=== PATIENT | female | born 1955 | race Caucasian/White ===

== ENCOUNTER → 2016-11-12 08:33 | Outpatient (CLI) | payer OTHER ==
[~2016-11-12 08:33] MED LIST: ADIPEX-P37.5 MG PO; ALEVE220 MG PO; ASCORBIC ACID500 MG PO; CHROMIUM PICO200 MC1 PO; CINNAMON500 MG PO; ECOTRIN325 MG PO; ESTROPIPATE1.5 MG PO; GALZIN25 MG PO; HYDROCODONE-APA1 TAB PO; KLONOPIN1 MG PO; MULTIPLE VITAMI1 TA1 PO; POTASSIUM99 M1 PO; PROVERA2.5 MG PO; ROBAXIN-750750 MG PO; VITAMIN B COMPL1 TAB PO
[2016-11-19 09:15] VITALS: BMI 29.7
== END | disposition home or self-care (01) ==
LOC: D.MRI 08:33
DX: M25.511 Pain in right shoulder (principal)

== ENCOUNTER 2016-11-19 05:38 | Day surgery (SDC) | payer OTHER ==
[2016-11-18 09:18] LABS: HEMATOCRIT 38.8 % (36.0-48.0); HEMOGLOBIN 13.4 g/dL (12-16); MCHC 34.5 g/dL (31.0-37.0); MCV 98.5 fL (80.0-100.0); RBC 3.94 10x6/uL (4.00-5.40); RDW 13.7 % (11.5-14.5); WBC 7.4 10x3/uL (4.8-10.8)
[~2016-11-19] VITALS: Ht 144.8 cm; Wt 62.1 kg
[~2016-11-19 05:38] MED LIST changes: -HYDROCODONE-APA1 TAB PO; -ROBAXIN-750750 MG PO
[2016-11-19 09:15] VITALS: BP 110/75; Ht 144.8 cm; Wt 62.1 kg
[2016-11-19] MEDS ORDERED: HYDROCODONE-APA1 TAB PO (13:12)
[2016-11-19] MEDS ORDERED: ROBAXIN-750750 MG PO (13:13)
--- NOTE | 2016-11-19 14:06 | NUR ---
IV DC WITH CATHER TIP INTACT
--- NOTE | 2016-11-28 08:25 | OP ---
PATIENT NAME: JENNIFER HELM MEDICAL RECORD: [id number] :57 LOCATION:D.[facility] ADMISSION DATE: SURGEON: NAMITA DARNELL MD DATE OF OPERATION: 11/19/2016 PREOPERATIVE DIAGNOSES: Right shoulder impingement, acromioclavicular joint degenerative joint disease and rotator cuff tear. POSTOPERATIVE DIAGNOSES: Right shoulder impingement, acromioclavicular joint disease and rotator cuff tear. PROCEDURE PERFORMED: Right shoulder arthroscopic decompression, subacromial decompression, distal clavicle excision, and open rotator cuff repair. SURGEON: Oc Darnell MD ANESTHESIA: General with interscalene block for postop pain. CONDITION: The patient tolerated the procedure well, was transferred to the recovery room in stable condition at termination of procedure. INDICATIONS: This is a pleasant 61-year-old female noted to have weakness, pain. MRI suggestive of a full thickness tear. We discussed the options and elected to go ahead and proceed with the operative repair. We discussed risks, benefits, and alternatives including retear. She understood and wished to proceed. OPERATIVE REPORT: The patient was taken to the operating room, placed in a supine position. General anesthesia was obtained. Interscalene block was placed in the preop holding area. In the operating room, the right shoulder was confirmed to be the correct shoulder. She was then prepped and draped in normal fashion. Procedure was begun by marking out portal sites and injecting them with 0.25% Marcaine with epinephrine. Posterior portal was established. I then established an anterior portal under direct visualization. Glenohumeral joint overall looked good. There were some minor degenerative changes. There was some fraying of the labrum. There was some fraying of the biceps as well, but overall was intact. Coming up to the top, there was a fairly significant hole within the supraspinatus area anteriorly. I did take the scope out at this juncture, put to the subacromial space and using the shaver and cautery, I did remove the subacromial bursa. I then took off the undersurface of the acromion and the distal clavicle where there was significant under spurring. I then proceeded to make a lateral incision, opened this up, cleaned up the edge of the cuff, roughened up the bone on the footprint area, then placed 3 punch sutures into the cuff and two 4.5 [place] suture anchors into the footprint area to bring the cuff back down. This brought it down very well. I then inspected. Once it was noted that it was very in good position, I then copiously irrigated, then closed with 2-0 Vicryl, then 3-0 Prolene. She was placed in a slingshot brace, awakened and transferred to recovery room in stable condition, having tolerated procedure well. TRANSINT:[id number] Voice Confirmation ID: [id number] DOCUMENT ID: [id number] OPERATIVE REPORT [id number] JENNIFER HELM, NAMITA COX MD at 0825 CC: [id number] DICTATION DATE: 11/19/16 1238 MECHANICAL APPLICATIONS ENGINEER: 11/19/[address] [facility] 11/19/16 [address] [place] [address]
== END 2016-11-19 14:15 | disposition home or self-care (01) ==
LOC: D.OPS 05:38 → D.PAN 11:00 → D.OPS 11:15
PROVIDERS: Anesthesiology
DX: M75.41 Impingement syndrome of right shoulder (principal); M19.011 Primary osteoarthritis, right shoulder; M75.101 Unspecified rotator cuff tear or rupture of right shoulder, not specified as traumatic

== ENCOUNTER → 2018-02-13 06:57 | Outpatient (CLI) | payer OTHER ==
[2016-11-19 09:15] VITALS: BMI 29.7
[~2018-02-13 06:57] MED LIST changes: +HYDROCODONE-APA1 TAB PO; +ROBAXIN-750750 MG PO
== END | disposition home or self-care (01) ==
LOC: D.MRI 06:57
DX: M54.16 Radiculopathy, lumbar region (principal)

== ENCOUNTER → 2018-07-22 12:41 | Outpatient (CLI) | payer OTHER ==
[2016-11-19 09:15] VITALS: BMI 29.7
== END | disposition home or self-care (01) ==
LOC: D.LABREF 12:41
DX: M16.11 Unilateral primary osteoarthritis, right hip (principal); Z11.8 Encounter for screening for other infectious and parasitic diseases

== ENCOUNTER 2018-08-17 05:13 | Inpatient (IN) | payer OTHER ==
[2018-08-12 11:32] LABS: BASOPHILS 0.5 % (0-2); EOSINOPHILS 2.9 % (0-7); HEMATOCRIT 40.7 % (36.0-48.0); HEMOGLOBIN 13.6 g/dL (12-16); IMMATURE GRANULOCYTES 0.3 % (0-5); LYMPHOCYTES 26.3 % (15-50); MCH 32.2 pg (26.0-34.0); MCHC 33.4 g/dL (31.0-37.0); MCV 96.4 fL (80.0-100.0); MEAN PLATELET VOLUME 9.8 fL (7.4-10.4); RBC 4.22 10x6/uL (4.00-5.40); RDW 13.7 % (11.5-14.5); WBC 10.7 10x3/uL (4.8-10.8)
[2018-08-12 11:40] LABS: PLATELET COUNT 354 10x3/uL (130-400)
[2018-08-12 11:45] LABS: APPEARANCE CLEAR (CLEAR); BILIRUBIN NEGATIVE (NEGATIVE); COLOR YELLOW (YELLOW); GLUCOSE NEGATIVE (NEGATIVE); KETONE NEGATIVE (NEGATIVE); NITRITE NEGATIVE (NEGATIVE); PROTEIN NEGATIVE (NEGATIVE); SPECIFIC GRAVITY 1.005 (1.005-1.020); UROBILINOGEN NORMAL (NORMAL)
[2018-08-12 11:45] LABS: INR 0.92 (0.85-1.17)
[2018-08-12 11:46] LABS: ANION GAP 14.1 mmol/L (8-16); CALCIUM 8.8 mg/dL (8.5-10.1); POTASSIUM - SERUM 3.1 mmol/L (3.5-5.1)
[2018-08-12 11:46] LABS: APTT 23.8 SECONDS (22.8-39.4)
[2018-08-17] VITALS (13 sets, daily range): BP systolic 98–166; BP diastolic 69–95; Ht 144.8 cm; Wt 79.5 kg
[~2018-08-17] VITALS: Ht 144.8 cm; Wt 79.5 kg
--- NOTE | ~2018-08-17 | OP ---
PATIENT NAME: JENNIFER HELM MEDICAL RECORD: [id number] :57 LOCATION:D[facility] ADMISSION DATE:08/17/18 SURGEON: SONYA SAWYER MD DATE OF OPERATION: 08/17/2018 PREOPERATIVE DIAGNOSIS: Severe degenerative arthritis of the right hip. POSTOPERATIVE DIAGNOSIS: Severe degenerative arthritis of the right hip. PROCEDURE: Right total hip arthroplasty. SURGEON: Sonya Sawyer MD ANESTHESIA: General. INTRAOPERATIVE COMPLICATIONS: None. SUMMARY OF PATHOLOGIC FINDINGS: Extensive osteoarthritis of her right hip consistent with the preoperative radiographs. IMPLANTS USED: [place] Accolade II with a Tritanium cup size 48, alpha code C, 32-4 V40 femoral head, Trident X3 polyethylene insert, 32 alpha C code, Accolade II 132 degree neck angle stem size 3. OPERATIVE SUMMARY IN DETAIL: After obtaining the appropriate preoperative orthopedic surgery consent as well as anesthetic consultation, evaluation and clearance, the patient was brought to the operating room and placed on the operating table in supine position. After general laryngeal mask airway was administered, the patient was placed in left lateral decubitus position. All pressure points well were padded to include down leg peroneal pad as well as axillary roll. The patient was held firmly to the operating table using the vacuum pack suction system. Right lower extremity and hip were then prepped and draped in routine sterile fashion. A curvilinear incision made over the greater trochanter and take down to the IT band, was split in line with the fibers of the IT band to reveal the gluteus medius minimus attachment. These were reflected anteriorly. Dissection was then carried down to the hip capsule. The hip capsule was split in a T-type fashion and saved for later reapproximation. Hip was dislocated. Femoral neck cut was made using the femoral neck cutting guide for the Accolade II system. At this point, the anterior and posterior retractors were placed for good visualization of the acetabulum. Circumferential labrectomy was followed by serial and sequential reaming to a size 47 for a size 48 Trident 2 cup. The Trident 2 cup was put into place with excellent fit and fill. Polyethylene was then put into place. Serial and sequential reaming were done to the size 3 Accolade II stem, which was tamped into place with good fit and fill. Trials were undertaken. It was felt that -4 was the most appropriate. The -4 was tamped on the Morris taper. The hip was reduced, taken through range of motion and found to be stable in all planes. Intraoperative radiographs were taken at this point showed good position and placement of all components. Hip capsule was reapproximated with #2 Ethibond. This was then followed by #5 Ethibond reapproximation of the gluteus medius and minimus back to the greater trochanter in a transosseous fashion. IT band was closed with #2 Ethibond followed by #1 Vicryl, 2-0 Vicryl and skin mee. Sterile dressings were applied. The patient was awakened and taken to the recovery room in stable condition. All final needle and sponge counts were correct. OPERATIVE REPORT [id number] ALICJAJENNIFER KI TRANSINT:[id number] Voice Confirmation ID: [id number] DOCUMENT ID: [id number] DIGNA REARDON, SONYA ADAMSON at 2017 CC: [id number] DICTATION DATE: 08/17/18 1213 ENGINEER SOILS: 08/17/18 1517 ADM IN [facility] [address] [place] [address]
--- NOTE | ~2018-08-17 | MORECARE ---
CASE MANAGEMENT DISCHARGE SUMMARY PATIENT: JENNIFER HELM UNIT: [id number] ADM DATE: 08/17/18 AGE: 63 : 57 SEX: F ROOM/BED: D.2211 AUTHOR: SWATI,DOC PHYSICIAN: REFERRING PHYSICIAN: SONYA SAWYER MD DATE OF SERVICE: 08/19/18 Discharge Plan Patient Name: JENNIFER HELM Facility: [facility]:[place] : 1955 Planned Disposition: Home with Home Health Anticipated Discharge Date: 08/19/18 Discharge Date: Expected LOS: 2 Initial Reviewer: [id number] Initial Review Date: 08/19/2018 Generated: 08/19/18 11:49 am Comments DCP- Discharge Planning Updated by [email or web address]: Yvette Joseph on 08/19/18 9:[address] Patient Name: JENNIFER HELM Admission Status: Elective Accout number: [id number] Admission Date: 08-17-2018 : 1955 Admission Diagnosis: Attending: SONYA SAWYER Current LOS: 2 Anticipated DC Date: 08-19-2018 Planned Disposition: Home with Home Health Primary Insurance: [employer] INS EXCHANGE Discharge Planning Comments: CM MET WITH PATIENT ABOUT DC PLANNING. PLANS TO DC HOME TODAY, WILL BRINE PLANT OPERATOR. [facility] IS BRINGING WALKER AND BEDSIDE COMMODE TO HOSPITAL ROOM BEFORE DISCHARGE. I SPOKE WITH MERYL AT [facility] AND THEY WILL SEE PATIENT FRIDAY. CM FAXED DOCUMENTS TO [facility]. Customer Logistics Manager: Yvette Joseph DCPIA - Discharge Planning Initial Assessment Updated by [email or web address]: Yvette Joseph on 08/19/18 10:19 am * Is the patient Alert and Oriented? Yes * How many steps to enter\exit or inside your home? * PCP BRASHEARS * Preadmission Environment Home with Family * ADLs Independent * Equipment Cane Grab Bars * List name and contact numbers for known caregivers / representatives who currently or will assist patient after discharge: LARRY ADAME, * Verbal permission to speak to the caregivers and representatives has been obtained from the patient. Yes * Community resources currently utilized None * Additional services required to return to the preadmission environment? Yes * Can the patient safely return to the preadmission environment? Yes * Has this patient been hospitalized within the prior 30 days at any hospital? No External Providers External Provider: [facility] Next Contact Date: Service Request Date: Service Type: Resolution: Reviewer: Comments: Coverage Notice Reviewer: [id number] - Yvette Joseph Notice Issued Date-Time: 08/19/2018 10:16 Notice Type: Patient Choice Letter Notice Delivered To: Patient Relationship to Patient: Self Raw Silk Grader Name: Delivery Method: HAND - Hand Delivered Caryn Days: Prior Verbal Notification: Recipient Understood Notice: Yes Recipient Signature: Yes Med Rec Note Co-signed by Attending: Coverage Notice Comment: ANGELIQUE Minor DP export: 08/19/18 9:24 Patient Name: JENNIFER HELM Page [phone] at 1049 All edits/amendments must be made on the electronic document DICTATION DATE: 08/19/181048 MICROARRAY SPECIALIST: RONAK 08/19/18 1049 RPT#: [id number] DC DATE: STATUS: ADM IN [facility] [address] [place] [address] END OF REPORT
--- NOTE | ~2018-08-17 | MORECARE ---
CASE MANAGEMENT DISCHARGE SUMMARY PATIENT: JENNIFER HELM UNIT: [id number] ADM DATE: 08/17/18 AGE: 63 : 57 SEX: F ROOM/BED: D.2211 AUTHOR: SWATI,DOC PHYSICIAN: REFERRING PHYSICIAN: SONYA SAWYER MD DATE OF SERVICE: 08/19/18 Discharge Plan Patient Name: JENNIFER HELM Facility: [facility]:[place] : 1955 Planned Disposition: Home with Home Health Anticipated Discharge Date: 08/19/18 Discharge Date: Expected LOS: 2 Initial Reviewer: [id number] Initial Review Date: 08/19/2018 Generated: 08/19/18 3:11 pm Comments DCP- Discharge Planning Updated by [email or web address]: Yvette Joseph on 08/19/18 1:[address] Patient Name: JENNIFER HELM Encounter No: [id number] : 1955 Primary Insurance: [employer] EXCHANGE Anticipated DC Date: 08-19-2018 Planned Disposition: Home with Home Health External Planned Provider: : DCP follow-up note[facility], THEY ARE THE ONLY SERVICE THAT HER INSURANCE IS IN NETWORK WITH. Case management will follow and assist as needed. Yvette Joseph DCP- Discharge Planning Updated by [email or web address]: Yvette Joseph on 08/19/18 9:[address] Patient Name: JENNIFER HELM Admission Status: Elective Accout number: [id number] Admission Date: 08-17-2018 : 1955 Admission Diagnosis: Attending: SONYA SAWYER Current LOS: 2 Anticipated DC Date: 08-19-2018 Planned Disposition: Home with Home Health Primary Insurance: [employer] INS EXCHANGE Discharge Planning Comments: CM MET WITH PATIENT ABOUT DC PLANNING. PLANS TO DC HOME TODAY, WILL FURS SALESPERSON. [facility] IS BRINGING WALKER AND BEDSIDE COMMODE TO HOSPITAL ROOM BEFORE DISCHARGE. I SPOKE WITH MERYL AT [facility] AND THEY WILL SEE PATIENT FRIDAY. CM FAXED DOCUMENTS TO [facility]. Soft Sugar Supervisor: Yvette Joseph DCPIA - Discharge Planning Initial Assessment Updated by [email or web address]: Yvette Joseph on 08/19/18 10:19 am * Is the patient Alert and Oriented? Yes * How many steps to enter\exit or inside your home? * PCP BRASHEARS * Preadmission Environment Home with Family * ADLs Independent * Equipment Cane Grab Bars * List name and contact numbers for known caregivers / representatives who currently or will assist patient after discharge: LARRY ADAME, * Verbal permission to speak to the caregivers and representatives has been obtained from the patient. Yes * Community resources currently utilized None * Additional services required to return to the preadmission environment? Yes * Can the patient safely return to the preadmission environment? Yes * Has this patient been hospitalized within the prior 30 days at any hospital? No External Providers External Provider: [facility] Contact Date: Service Request Date: Service Type: Resolution: Reviewer: Comments: Coverage Notice Reviewer: [id number] Filiberto Yvette Opal Notice Issued Date-Time: 08/19/2018 10:16 Notice Type: Patient Choice Letter Notice Delivered To: Patient Relationship to Patient: Self Ship Design Teacher Name: Delivery Method: HAND - Hand Delivered Caryn Days: Prior Verbal Notification: Recipient Understood Notice: Yes Recipient Signature: Yes Med Rec Note Co-signed by Attending: Coverage Notice Comment: ANGELIQUE Minor DP export: 08/19/18 11:13 Patient Name: JENNIFER HELM Page [phone] at 1411 All edits/amendments must be made on the electronic document DICTATION DATE: 08/19/181410 LIAISON OFFICER: RONAK 08/19/181410 RPT#: [id number] DC DATE: STATUS: ADM IN [facility] [address] [place] [address] END OF REPORT
--- NOTE | ~2018-08-17 | MORECARE ---
CASE MANAGEMENT DISCHARGE SUMMARY PATIENT: JENNIFER HELM UNIT: [id number] ADM DATE: 08/17/18 AGE: 63 : 57 SEX: F ROOM/BED: D.2211 AUTHOR: SWATI,DOC PHYSICIAN: REFERRING PHYSICIAN: SONYA SAWYER MD DATE OF SERVICE: 08/19/18 Discharge Plan Patient Name: JENNIFER HELM Facility: [facility]:[place] : 1955 Planned Disposition: Home with Home Health Anticipated Discharge Date: 08/19/18 Discharge Date: Expected LOS: 2 Initial Reviewer: [email or web address] Initial Review Date: 08/19/2018 Generated: 08/19/18 11:24 am Comments DCP- Discharge Planning Updated by [email or web address]: Yvette Joseph on 08/19/18 9:[address] Patient Name: JENNIFER HELM Admission Status: Elective Accout number: [id number] Admission Date: 08-17-2018 : 1955 Admission Diagnosis: Attending: SONYA SAWYER Current LOS: 2 Anticipated DC Date: 08-19-2018 Planned Disposition: Home with Home Health Primary Insurance: [employer] INS EXCHANGE Discharge Planning Comments: CM MET WITH PATIENT ABOUT DC PLANNING. PLANS TO DC HOME TODAY, WILL EMBEDDED LINUX DEVELOPER. [facility] IS BRINGING WALKER AND BEDSIDE COMMODE TO HOSPITAL ROOM BEFORE DISCHARGE. I SPOKE WITH MERYL AT [facility] AND THEY WILL SEE PATIENT FRIDAY. CM FAXED DOCUMENTS TO [facility]. Warehouse Freight Handler: Yvette Joseph DCPIA - Discharge Planning Initial Assessment Updated by [email or web address]: Yvette Joseph on 08/19/18 10:19 am * Is the patient Alert and Oriented? Yes * How many steps to enter\exit or inside your home? * PCP BRASHEARS * Preadmission Environment Home with Family * ADLs Independent * Equipment Cane Grab Bars * List name and contact numbers for known caregivers / representatives who currently or will assist patient after discharge: LARRY ADAME, * Verbal permission to speak to the caregivers and representatives has been obtained from the patient. Yes * Community resources currently utilized None * Additional services required to return to the preadmission environment? Yes * Can the patient safely return to the preadmission environment? Yes * Has this patient been hospitalized within the prior 30 days at any hospital? No External Providers External Provider: [facility] Next Contact Date: Service Request Date: Service Type: Resolution: Reviewer: Comments: Coverage Notice Reviewer: [email or web address] Filiberto Yvetteanjelica Joseph Notice Issued Date-Time: 08/19/2018 10:16 Notice Type: Patient Choice Letter Notice Delivered To: Patient Relationship to Patient: Self Hybrid Corn Breeder Name: Delivery Method: HAND - Hand Delivered Caryn Days: Prior Verbal Notification: Recipient Understood Notice: Yes Recipient Signature: Yes Med Rec Note Co-signed by Attending: Coverage Notice Comment: ANGELIQUE Patient Name: JENNIFER HELM Page [id number] at 1025 All edits/amendments must be made on the electronic document DICTATION DATE: 08/19/18 1024 CQ DEVELOPER: RONAK 08/19/18 1024 RPT#: [id number] DC DATE: STATUS: ADM IN [facility] [address] [place] [address] END OF REPORT
--- NOTE | ~2018-08-17 | MORECARE ---
CASE MANAGEMENT DISCHARGE SUMMARY PATIENT: JENNIFER HELM UNIT: [id number] ADM DATE: 08/17/18 AGE: 63 : 57 SEX: F ROOM/BED: D.2211 AUTHOR: SWATI,DOC PHYSICIAN: REFERRING PHYSICIAN: SONYA SAWYER MD DATE OF SERVICE: 08/24/18 Discharge Plan Patient Name: JENNIFER HELM Facility: [facility]:[place] : 1955 Planned Disposition: Home with Home Health Anticipated Discharge Date: 08/19/18 Discharge Date: 08/19/2018 Expected LOS: 2 Initial Reviewer: [id number] Initial Review Date: 08/19/2018 Generated: 08/24/18 9:09 am Comments DCP- Discharge Planning Updated by [email or web address]: Yvette Joseph on 08/19/18 1:[address] Patient Name: JENNIFER HELM Encounter No: [id number] : 1955 Primary Insurance: [employer] EXCHANGE Anticipated DC Date: 08-19-2018 Planned Disposition: Home with Home Health External Planned Provider: : DCP follow-up note: [facility] WILL SEE PATIENT FRIDAY, THEY ARE THE ONLY SERVICE THAT HER INSURANCE IS IN NETWORK WITH. Case management will follow and assist as needed. Yvette Joseph DCP- Discharge Planning Updated by [email or web address]: Yvette Joseph on 08/19/18 9:[address] Patient Name: JENNIFER HELM Admission Status: Elective Accout number: [id number] Admission Date: 08-17-2018 : 1955 Admission Diagnosis: Attending: SONYA SAWYER Current LOS: 2 Anticipated DC Date: 08-19-2018 Planned Disposition: Home with Home Health Primary Insurance: [employer] INS EXCHANGE Discharge Planning Comments: CM MET WITH PATIENT ABOUT DC PLANNING. PLANS TO DC HOME TODAY, WILL INTERNATIONAL AFFAIRS VICE PRESIDENT. [facility] IS BRINGING WALKER AND BEDSIDE COMMODE TO HOSPITAL ROOM BEFORE DISCHARGE. I SPOKE WITH MERYL AT [facility] AND THEY WILL SEE PATIENT FRIDAY. CM FAXED DOCUMENTS TO [facility]. Salad Maker: Yvette Joseph DCPIA - Discharge Planning Initial Assessment Updated by [id number]: Yvette Joseph on 08/19/18 10:19 am * Is the patient Alert and Oriented? Yes * How many steps to enter\exit or inside your home? * PCP COURTNEY * Preadmission Environment Home with Family * ADLs Independent * Equipment Cane Grab Bars * List name and contact numbers for known caregivers / representatives who currently or will assist patient after discharge: LARRY ADAME, * Verbal permission to speak to the caregivers and representatives has been obtained from the patient. Yes * Community resources currently utilized None * Additional services required to return to the preadmission environment? Yes * Can the patient safely return to the preadmission environment? Yes * Has this patient been hospitalized within the prior 30 days at any hospital? No Coverage Notice Reviewer: [id number] - Yvette Joseph Notice Issued Date-Time: 08/19/2018 10:16 Notice Type: Patient Choice Letter Notice Delivered To: Patient Relationship to Patient: Self Analysis Manager Name: Delivery Method: HAND - Hand Delivered Caryn Days: Prior Verbal Notification: Recipient Understood Notice: Yes Recipient Signature: Yes Med Rec Note Co-signed by Attending: Coverage Notice Comment: ANGELIQUE Minor DP export: 08/19/18 1:11 Patient Name: JENNIFER HELM Page [phone] at 0809 All edits/amendments must be made on the electronic document DICTATION DATE: 08/24/18807 BULLET ASSEMBLY PRESS SETTER OPERATOR: RONAK 08/24/18807 RPT#: [id number] DC DATE:08/19/18 STATUS: DIS IN [facility] [address] [place] [address] END OF REPORT
--- NOTE | ~2018-08-17 | MORECARE ---
CASE MANAGEMENT DISCHARGE SUMMARY PATIENT: JENNIFER HELM UNIT: [id number] ADM DATE: 08/17/18 AGE: 63 : 57 SEX: F ROOM/BED: D.2211 AUTHOR: SWATI,DOC PHYSICIAN: REFERRING PHYSICIAN: SONYA SAWYER MD DATE OF SERVICE: 08/19/18 Discharge Plan Patient Name: JENNIFER HELM Facility: [facility]:[place] : 1955 Planned Disposition: Home with Home Health Anticipated Discharge Date: 08/19/18 Discharge Date: Expected LOS: 2 Initial Reviewer: [email or web address] Initial Review Date: 08/19/2018 Generated: 08/19/18 1:13 pm Comments DCP- Discharge Planning Updated by [email or web address]: Yvette Joseph on 08/19/18 9:[address] Patient Name: JENNIFER HELM Admission Status: Elective Accout number: [id number] Admission Date: 08-17-2018 : 1955 Admission Diagnosis: Attending: SONYA SAWYER Current LOS: 2 Anticipated DC Date: 08-19-2018 Planned Disposition: Home with Home Health Primary Insurance: [employer] INS EXCHANGE Discharge Planning Comments: CM MET WITH PATIENT ABOUT DC PLANNING. PLANS TO DC HOME TODAY, WILL SENIOR CONSULTANT. [facility] IS BRINGING WALKER AND BEDSIDE COMMODE TO HOSPITAL ROOM BEFORE DISCHARGE. I SPOKE WITH MERYL AT [facility] AND THEY WILL SEE PATIENT FRIDAY. CM FAXED DOCUMENTS TO [facility]. Fine Sander: Yvette Joseph DCPIA - Discharge Planning Initial Assessment Updated by [email or web address]: Yvette Joseph on 08/19/18 10:19 am * Is the patient Alert and Oriented? Yes * How many steps to enter\exit or inside your home? * PCP BRASHEARS * Preadmission Environment Home with Family * ADLs Independent * Equipment Cane Grab Bars * List name and contact numbers for known caregivers / representatives who currently or will assist patient after discharge: LARRY ADAME, * Verbal permission to speak to the caregivers and representatives has been obtained from the patient. Yes * Community resources currently utilized None * Additional services required to return to the preadmission environment? Yes * Can the patient safely return to the preadmission environment? Yes * Has this patient been hospitalized within the prior 30 days at any hospital? No External Providers External Provider: [facility] Next Contact Date: Service Request Date: Service Type: Resolution: Reviewer: Comments: Coverage Notice Reviewer: [email or web address] Filiberto Joseph Notice Issued Date-Time: 08/19/2018 10:16 Notice Type: Patient Choice Letter Notice Delivered To: Patient Relationship to Patient: Self Diamond Die Maker Name: Delivery Method: HAND - Hand Delivered Caryn Days: Prior Verbal Notification: Recipient Understood Notice: Yes Recipient Signature: Yes Med Rec Note Co-signed by Attending: Coverage Notice Comment: ANGELIQUE Minor DP export: 08/19/18 9:49 Patient Name: JENNIFER HELM Page [phone] at 1214 All edits/amendments must be made on the electronic document DICTATION DATE: 08/19/18 1213 BOTANY LABORATORY ASSISTANT: RONAK 08/19/18 1213 RPT#: [id number] DC DATE: STATUS: ADM IN [facility] [address] [place] [address] END OF REPORT
[~2018-08-17 05:13] MED LIST changes: +BIOFLEX TABLET1 EACH PO; +CYMBALTA60 MG PO; +ESTRACE1 MG PO; +FUROSEMIDE40 MG PO; +MAGNESIUM CITRATE PO; +OMEPRAZOLE20 M1 PO; +ULTRAM50 MG PO; +VITAMIN K PO; +ZANAFLEX4 MG PO
[2018-08-18 04:11] VITALS: BP 154/80
[2018-08-18 05:49] LABS: HEMATOCRIT 32.1 % (36.0-48.0); HEMOGLOBIN 10.3 g/dL (12-16); MCH 30.8 pg (26.0-34.0); MCHC 32.1 g/dL (31.0-37.0); MCV 96.1 fL (80.0-100.0); MEAN PLATELET VOLUME 10.1 fL (7.4-10.4); RBC 3.34 10x6/uL (4.00-5.40); RDW 13.8 % (11.5-14.5); WBC 15.1 10x3/uL (4.8-10.8)
[2018-08-18 08:45] VITALS: BP 156/83
[2018-08-18 12:45] VITALS: BP 116/75
[2018-08-18 16:53] VITALS: BP 120/78
[2018-08-18 20:16] VITALS: BP 120/71
[2018-08-19 03:31] VITALS: BP 108/69
[2018-08-19 04:24] LABS: HEMATOCRIT 30.4 % (36.0-48.0); HEMOGLOBIN 9.7 g/dL (12-16); MCH 30.9 pg (26.0-34.0); MCHC 31.9 g/dL (31.0-37.0); MCV 96.8 fL (80.0-100.0); MEAN PLATELET VOLUME 9.5 fL (7.4-10.4); RBC 3.14 10x6/uL (4.00-5.40); WBC 11.6 10x3/uL (4.8-10.8)
[2018-08-19] MEDS ORDERED: OXYCODONE-APAP1 TAB PO (08:05)
[2018-08-19] MEDS ORDERED: ELIQUIS2.5 MG PO (08:05)
[2018-08-19 08:42] VITALS: BP 114/72
[2018-08-19 13:03] VITALS: BP 134/81
== END 2018-08-19 15:00 | disposition home health service (06) | DRG 470 ==
LOC: D.SDCHOLD 05:13 → D.MS 05:13 → D.SDCHOLD 07:30 → D.MS 11:27
PROVIDERS: Orthopaedic Surgery
PROC: 0SR90JZ Replacement of Right Hip Joint with Synthetic Substitute, Open Approach (ICD-10-PCS; principal; 2018-08-17 08:00)
DX: M16.11 Unilateral primary osteoarthritis, right hip (principal)